=== PATIENT | male | born 1995 | race Caucasian/White ===

== ENCOUNTER 2022-02-06 03:29 | Emergency (ER) | payer SELFPAY ==
[2022-02-06 03:54] VITALS: BP 135/80; PULSE 98; TEMP 98.2; BMI 33.9
== END 2022-02-06 05:13 | disposition home or self-care (01) ==
LOC: JER 03:29
DX: S00.501A Unspecified superficial injury of lip, initial encounter (principal); W22.8XXA Striking against or struck by other objects, initial encounter
CPT/HCPCS: 99281-25